=== PATIENT | female | born 1970 | race Caucasian/White ===

== ENCOUNTER 2019-10-14 05:39 | Observation (INO) ==
[2019-10-14] MEDS ORDERED: methylPREDNISolone 125 MG/2 ML VIAL IVP STA (05:53)
[2019-10-14] MEDS ORDERED: Ibuprofen 800 MG TABLET PO ONE (05:53)
[2019-10-14] MEDS ORDERED: Ipratropium/Albuterol Neb 3 ML IH ONE (05:53)
[2019-10-14 06:28] LABS: INR 1.1; Prothrombin Time 12.5 Seconds (9.4-12.1)
[2019-10-14 06:34] LABS: BUN/Creatinine Ratio 12 (6-26); Blood Urea Nitrogen 10 mg/dL (6-20); Calcium 8.7 mg/dL (8.6-10.3); Carbon Dioxide 30 mEq/L (23-29); Chloride 102 mEq/L (98-107); Glucose 122 mg/dL (70-105); Osmolality,Calculated 286 (280-300); Potassium 4.1 mEq/L (3.5-5.1); Sodium 138 mEq/L (136-145); eGFR For African Americans > 60 (> 60); eGFR For Non-African Americans > 60 (> 60)
[2019-10-14 06:35] LABS: Troponin I < 0.03 ng/mL (< 0.04)
[2019-10-14 06:41] LABS: Basophils % 0.3 %; Eosinophils # 0.2 K/mcL (0.0-0.6); Eosinophils % 1.5 %; Hematocrit 37.6 % (35.3-44.9); Hemoglobin 12.4 g/dL (11.5-15.4); Immature Granulocytes % 0.5 % (0-4); Lymphocytes # 1.8 K/mcL (0.6-4.6); Lymphocytes % 14.9 %; Mean Corpuscular Hemoglobin 30.3 pg (28.0-33.3); Mean Corpuscular Volume 91.9 fL (83.0-100.0); Mean Platelet Volume 9.3 fL (9.4-12.4); Monocytes # 0.9 K/mcL (0.0-1.3); Monocytes % 7.3 %; Neutrophils # 8.9 K/mcL (1.6-8.9); Platelet Count 310 K/mcL (140-400); Red Blood Count 4.09 M/mcL (3.82-4.97); Red Cell Distribution Width 14.7 % (11.5-14.5); Segmented Neutrophils % 75.5 %; White Blood Count 11.8 K/mcL (4.3-11.1)
[2019-10-14] MEDS ORDERED: Azithromycin 250 MG TABLET PO ONE (07:18)
[2019-10-14] MEDS ORDERED: Ipratropium/Albuterol Neb 3 ML IH SCH (08:00)
[2019-10-14] MEDS: Ipratropium/Albuterol Neb 3 ML IH SCH ×5 (08:24→21:17)
[2019-10-14] MEDS: Gabapentin 300 MG CAPSULE PO SCH ×3 (09:15→20:44)
[2019-10-14] MEDS: Loratadine 10 MG TABLET PO SCH (09:15)
[2019-10-14] MEDS: BuPROPion SR (12 HR) 150 MG TABLET PO SCH ×2 (09:15→20:44)
[2019-10-14] MEDS: hydrOXYzine pamoate 25 MG CAPSULE PO SCH ×3 (09:15→20:44)
[2019-10-14] MEDS: Budesonide/Formoterol 160/4.5 1 PUFF INH IH SCH ×2 (11:46→21:17)
[2019-10-14] MEDS: methylPREDNISolone 125 MG/2 ML VIAL IVP SCH ×2 (16:56→23:26)
[2019-10-15] MEDS: Ipratropium/Albuterol Neb 3 ML IH SCH ×4 (04:34→22:33)
[2019-10-15] MEDS ORDERED: Ibuprofen 600 MG TABLET PO ONE (06:36)
[2019-10-15 06:43] LABS: Hematocrit 36.9 % (35.3-44.9); Mean Corpuscular HGB Conc 32.5 g/dL (31.6-35.5); Mean Corpuscular Hemoglobin 29.9 pg (28.0-33.3); Mean Corpuscular Volume 91.8 fL (83.0-100.0); Mean Platelet Volume 9.7 fL (9.4-12.4); Platelet Count 327 K/mcL (140-400); Red Blood Count 4.02 M/mcL (3.82-4.97); White Blood Count 17.9 K/mcL (4.3-11.1)
[2019-10-15 07:04] LABS: BUN/Creatinine Ratio 23 (6-26); Blood Urea Nitrogen 18 mg/dL (6-20); Calcium 8.8 mg/dL (8.6-10.3); Carbon Dioxide 27 mEq/L (23-29); Chloride 102 mEq/L (98-107); Glucose 148 mg/dL (70-105); Osmolality,Calculated 291 (280-300); Potassium 4.2 mEq/L (3.5-5.1); Sodium 138 mEq/L (136-145); eGFR For African Americans > 60 (> 60); eGFR For Non-African Americans > 60 (> 60)
[2019-10-15] MEDS: hydrOXYzine pamoate 25 MG CAPSULE PO SCH ×3 (09:07→21:08)
[2019-10-15] MEDS: Loratadine 10 MG TABLET PO SCH (09:07)
[2019-10-15] MEDS: BuPROPion SR (12 HR) 150 MG TABLET PO SCH ×2 (09:07→21:08)
[2019-10-15] MEDS: Gabapentin 300 MG CAPSULE PO SCH ×3 (09:07→21:08)
[2019-10-15] MEDS: methylPREDNISolone 125 MG/2 ML VIAL IVP SCH ×3 (09:08→23:22)
[2019-10-15] MEDS: Budesonide/Formoterol 160/4.5 1 PUFF INH IH SCH ×2 (09:59→22:42)
[2019-10-15] MEDS ORDERED: Mirtazapine 15 MG TABLET PO SCH (21:00)
[2019-10-16] MEDS: Ipratropium/Albuterol Neb 3 ML IH SCH ×2 (04:36→09:37)
[2019-10-16 06:08] VITALS: BP 124/73
[2019-10-16] MEDS: hydrOXYzine pamoate 25 MG CAPSULE PO SCH (08:45)
[2019-10-16] MEDS: BuPROPion SR (12 HR) 150 MG TABLET PO SCH (08:45)
[2019-10-16] MEDS: Loratadine 10 MG TABLET PO SCH (08:45)
[2019-10-16] MEDS: Gabapentin 300 MG CAPSULE PO SCH (08:45)
[2019-10-16] MEDS: methylPREDNISolone 125 MG/2 ML VIAL IVP SCH (08:45)
[2019-10-16] MEDS: Budesonide/Formoterol 160/4.5 1 PUFF INH IH SCH (09:38)
[2019-10-16] MEDS ORDERED: FLU Vac QV 19-20 (6Month+)/PF 0.5 ML SYRINGE IM ONE (12:06)
== END 2019-10-16 13:32 | disposition home or self-care (01) ==
LOC: INPPIK 05:39 → EMEROOPIK 05:39 → INPPIK 07:48
PROVIDERS: ADMIT Emergency Medicine; ATTEND Emergency Medicine